=== PATIENT | female | born 1970 | race Caucasian/White ===

== ENCOUNTER → 2017-11-21 | Day surgery (SDC) | payer MEDICARE, MEDICAID, SELFPAY | END | disposition home or self-care (01) | PROVIDERS: Family Provider Physician Assistant Medical; PCP Physician Assistant Medical; Visit Provider Orthopaedic Surgery | DX: S46.011A Strain of muscle(s) and tendon(s) of the rotator cuff of right shoulder, initial encounter (principal); M75.51 Bursitis of right shoulder; M75.01 Adhesive capsulitis of right shoulder; M19.011 Primary osteoarthritis, right shoulder; J45.909 Unspecified asthma, uncomplicated; M79.7 Fibromyalgia; W06.XXXA Fall from bed, initial encounter | CPT/HCPCS: 29827; 29826; 29824; 76942; J0171; J0690; J1100; J2250; J2405; J2704; J3010 ==

== ENCOUNTER 2018-03-27 08:40 | Day surgery (SDC) | payer MEDICARE, MEDICAID, SELFPAY ==
[2018-03-26 10:27] VITALS: BMI 30.2
[2018-03-27] VITALS (7 sets, daily range): BP systolic 95–132; BP diastolic 55–70; PULSE 70–97; RESP 10–19; TEMP 36.7–37.1; O2SAT 92–95; BMI 31.1
[2018-03-27 09:54] LABS: Add Manual Diff / Slide Review NO; Basophils Percent Auto 0.3 % (0-2); Hematocrit 37.4 % (36-46); Hemoglobin 12.6 g/dL (12.0-16.0); Lymphocytes Percent Auto 35.7 % (25-40); Mean Corpuscular HGB Conc 33.7 % (30-36); Mean Corpuscular Hemoglobin 28.4 PG (26-34); Mean Corpuscular Volume 84.5 fL (80-100); Monocytes Percent Auto 6.3 % (3-14); Neutrophils Absolute Auto 4200 /uL (3000-5900); Neutrophils Percent Auto 54.7 % (50-75); Platelet Count 277 X10^3/uL (150-400); Red Blood Cell Count 4.43 X10^6/uL (4.0-5.2); Red Cell Distribution Width 15.7 % (11.6-14.8); White Blood Cell Count 7.7 X10^3/uL (4.5-11.0)
[2018-03-27] MEDS: LACTATED RINGERS 1,000 ML 42 ML IV ×2 (09:57→13:30)
[2018-03-27 10:06] LABS: BUN Creatinine Ratio 17.1 (6-22); Blood Urea Nitrogen 12 mg/dL (7-17); Calcium 9.6 mg/dL (8.4-10.2); Carbon Dioxide 29 mmol/L (22-32); Chloride 104 mmol/L (98-107); Estimated Glomerular Filt Rate > 60.0 mL/min (>60); Glucose 98 mg/dL (70-100); HEMOLYSIS 16 (0-50); Potassium 3.8 mmol/L (3.4-5.1); Sodium 141 mmol/L (137-145)
--- NOTE | 2018-03-27 10:55 | SUR.PREOP ---
Dr. Corona speaking with patient, consent obtained for block/anesthesia. O2 put on at 2LNP, continuous VS and media monitor. 1058 Site prep done by after medication administration. 1104 Local to site in prep for block 1118 Block completed. Patient drowsy (was up all night) but easily arousable. Spouse at bedside throughout procedure. Patient tolerated procedure well, speaking w/anesthesia.Continues to be monitored
--- NOTE | 2018-03-27 11:06 | PM.PREOP ---
Pre-operative Note Interval Note Pre-op Check: Yes History & Physical Reviewed by Physician and Yes Exam Performed Changes: No
--- NOTE | 2018-03-27 11:06 | PM.OP.1 ---
Operative Date/Time/Diagnoses Date of procedure: 03/27/18 Time of procedure: 11:41 Pre-op diagnosis: right shoulder rotator cuff tear, ac arthritis Post-op diagnosis: same Procedure & Clinicians Procedure: right shoulder open rotator cuff repair, right shoulder AC resection Same procedure as scheduled: Yes Indications: patient has a history of a right rotator cuff tear. She is extremely noncompliant and developed a recurrent tear. She is brought the operating room for repair is indicated. She was having significant pain still over AC joint and the plan was also to resect additional clavicle as needed. Surgeon: Oxana Abdi Pantograph Machine Set Up Operator: Ivan Caldwell Click Yes if Unassisted: Yes Anesthesia Type: General and Peripheral nerve block Operative Notes Findings: recurrent tear of the rotator cuff, ac osteoarthritis Closure Type: primary Specimen(s): none sent Implants & Drains: Arthrex suture anchor Estimated Blood Loss (mL): 200 Blood products transfused: none Procedure in detail: patient was brought to the operating room. She underwent the induction of a general anesthesia. A peripheral nerve block had been placed in the preoperative area for postoperative pain management. Patient was carefully positioned with a shoulder table and placed in a beach chair position. Her right upper extremity was prepped and draped in a standard sterile fashion. A time-out was performed and antibiotics were given. A skin incision was made over the anterior aspect of the shoulder just medial to the edge of the acromion. Dissection was carried out through skin and subcutaneous tissues. Marcaine with epinephrine was injected. an incision was made over the AC joint capsule. A portion of the clavicle appeared to be appropriately decompressed but in the most posterior aspect of it as well as along the superior aspect of the as clavicle there was a small bony spur. A saw was used to resect a small portion of the clavicle. The edge was meticulously smoothed with a rongeur. The capsule was repaired with interrupted stitches. Next attention was directed at the rotator cuff. The junction of the middle and anterior 3rd of the deltoid was identified and a small amount of deltoid was stripped from the anterior acromium. The deltoid was tagged and gently retracted. The previously placed suture and suture anchor were identified and removed. The suture was noted to be failed in the tissue. The suture was relatively free in the subdeltoid bursa. Inflamed bursal tissue was carefully removed. Patient's shoulder was placed through her range of motion. There was a full-thickness tear in her rotator cuff which was approximately 1 cm. It had clearly extended some in comparison to the previous repair. Bone at the edge of the articular cartilage and greater tuberosity was carefully freshen. Suture anchor was then placed and meticulously checked to ensure stability. A total of 3 stitches were then used to repair the rotator cuff. Good quality repair was achieved. Patient was place her range of motion the repair was noted to be stable throughout range of motion. There was no significant adhesions noted on placing the patient through the range of motion. The deltoid was repaired directly back to the anterior chromium and the junction between the middle 3rd and anterior 3rd was carefully repaired. Additional Marcaine was injected. Skin was closed with interrupted stitches and Monocryl. The wound was dressed sterilely. Patient was placed in a sling. She tolerated the procedure well and was transferred to recovery room in satisfactory condition. Complications: none Condition: stable Disposition: same day surgery Plan for aftercare: okay to do range of motion for the wrist and elbow. Use sling but pushed to full Passive range of motion of the right shoulder.
[2018-03-27] MEDS: CEFAZOLIN 2 GM/100 ML FROZ.PIGGY IV (11:25)
--- NOTE | 2018-03-27 12:09 | SUR.OPER ---
Beach chair with Vita/Kassi shoulder positioner. Lower body on padded OR bed. Head in foam padded head cradle, secured with straps. Non-operative arm secured <90 degrees abduction. Pillow under knees. Safety belt at thigh. Cloth tape over blanket over lower legs.
--- NOTE | 2018-03-27 12:15 | PM.PROC.1 ---
Procedures Date/Time Date of procedure: 03/27/18 Time of procedure: 11:00 General Procedure description: Ultrasound guided interscalene brachial plexus nerve block for post op pain control after right shoulder rotator cuff repair by Dr. Abdi. Risk and benefits of procedure discussed with patient. ASA monitoring applied to patient. O2 given via nasal cannula. 2 mg Versed and 50 mcg fentanyl given for procedural sedation. Skin site was prepped with chlorhexidine and allowed to fully dry. Sterile gloves, mask, hat and probe cover were used to maintain sterility. 2% lidocaine and 30ga needle was used to make a small skin wheal at needle insertion site. Under ultrasound guidance, a 21ga 50mm Pajunk needle was directed into the interscalene groove (middle/anterior scalenes) near the brachial plexus. Patient reported no parasthesias. After negative aspiration, 20 mL 0.5% ropivicaine and 10mg dexamethasone were injected around brachial plexus. Patient tolerated procedure well.
[2018-03-27] MEDS: BUPIVACAINE 0.5% W/ EPI (PF) VIAL 30 ML INJ (12:23)
--- NOTE | 2018-03-27 13:32 | SUR.PHASEI ---
patient with decreased breath sounds in lower left lobe of lungs, patient continues to require 3lpm via NC to maintain sats of 94. 90% on room air. Alert and oriented and in no distress at this time, all other vital signs remain normal. will remain in OPD on o2 and o2 sat monitor for titration off o2.
--- NOTE | 2018-03-27 13:46 | SUR.PHASEII ---
Spoke to Dr. Corona regarding patients continued needs for 02. Per Dr. Corona patient ok to discharge as long as alert, oriented, and with room air oxygen saturations greater than 88% on room air.
--- NOTE | 2018-03-27 13:59 | SUR.PHASEII ---
02 d/c'ed rest of vs stable sats 90-92% on room air. pt wants to go. assissted to dress. pt left when ready.
== END 2018-03-27 14:40 | disposition home or self-care (01) ==
PROVIDERS: PCP Family Medicine; Visit Provider Orthopaedic Surgery
PROC: (CPT 23410; principal; 2018-03-27 10:45)
DX: M75.121 Complete rotator cuff tear or rupture of right shoulder, not specified as traumatic (principal); M19.011 Primary osteoarthritis, right shoulder; G89.18 Other acute postprocedural pain; F41.9 Anxiety disorder, unspecified; M79.7 Fibromyalgia
CPT/HCPCS: 23410; 23120; 64415; 64450; 80048; 85025; J0690; J1100; J2250; J2405; J2704; J2795; J3010

== ENCOUNTER 2018-04-11 19:59 | Emergency (ER) | payer MEDICARE, MEDICAID, SELFPAY ==
[2018-04-11 21:01] VITALS: BP 137/89; PULSE 90; RESP 18; TEMP 36.4; O2SAT 99; BMI 32.1
--- NOTE | 2018-04-11 22:57 | DI.RAD.S_ITS ---
PROCEDURE: XR SHOULDER RT MIN 2V INDICATIONS: Right shoulder pain. TECHNIQUE: 3 views of the shoulder were acquired. COMPARISON: [facility] [place], CR, XR SHOULDER 2+ VIEWS RIGHT, 09/11/2017, 10:26. [facility] [place], CR, XR SHOULDER 2+ VIEWS RIGHT, 11/29/2017, 10:43. [facility] [place], CR, XR SHOULDER 2+ VIEWS RIGHT, 12/29/2017, 15:07. [facility] [place], MR, MR SHOULDER RIGHT WITHOUT CONTRAST, 03/10/2018, 14:20. FINDINGS: Bones: No fractures or dislocations. There is mild anterior inferior subluxation of humeral head. Widening of the acromial clavicular joint and superior subluxation of distal clavicle. No suspicious bony lesions. Visualized ribs appear intact. Soft tissues: No suspicious soft tissue calcifications. IMPRESSION: 1. There is mild anterior inferior subluxation of humeral head at the glenohumeral joint. 2. Widening of the right a.c. joint with superior subluxation of distal clavicle consistent with a.c. separation. Dictated by: Vishal Nagy M.D. on 04/12/2018 at 10:04 Approved by: Vishal Nagy M.D. on 04/12/2018 at 10:08
[2018-04-11 23:06] VITALS: BP 125/82; PULSE 76; RESP 16; TEMP 36.8; O2SAT 97
[2018-04-11] MEDS: KETOROLAC 60 MG/2 ML VIAL IM (23:50)
[2018-04-11] MEDS: OXYCODONE/ACETAMINOPHEN 5/325 TABLET 1 TAB PO (23:55)
--- NOTE | 2018-04-12 00:01 | ED_ITS ---
HPI - Extremity Injury (Upper) General Chief Complaint: Extremity Injury, Upper Stated Complaint: RT SHOULDER PAIN S/P SURGERY Time Seen by Provider: 04/11/18 20:30 Source: patient Mode of arrival: ambulatory Limitations: no limitations History of Present Illness HPI narrative: 47-year-old female with history asthma and longstanding right shoulder trouble presents with a history of right shoulder pain for the past few days. She has had multiple recent surgeries to repair rotator cuff injuries and with a simple nontraumatic motion felt a pop in her shoulder and developed bruising. She denies any weakness, numbness or tingling. complaint: injury to: right Onset (ago): hour(s) Other injuries: none Handedness: right Place: home Severity: moderate Relieving factors: none Exacerbating factors: movement of extremity Associated symptoms: denies other symptoms Related Data Home Medications Medication Instructions Recorded Confirmed ALBUTEROL SULFATE (Ventolin / 0 INH PRN PRN #0 09/13/06 Proventil) ondansetron [Zofran ODT] 8 mg PO PRN #0 11/03/12 03/27/18 topiramate [Topamax] 400 mg PO HS #0 11/03/12 03/27/18 bupropion HCl [Wellbutrin SR] 200 mg PO BID #0 07/29/16 03/27/18 dextroamphetamine-amphetamine 20 mg PO TID #0 02/09/17 03/27/18 [Adderall] pseudoephedrine HCl 60 mg PO Q6HP PRN #0 02/09/17 acetaminophen 1,000 mg PO Q4HP PRN #0 11/15/17 03/27/18 albuterol sulfate [Proventil HFA] 2 puff INH Q4HP PRN #0 11/15/17 03/27/18 ascorbic acid (vitamin C) 1,000 mg PO #0 11/15/17 aspirin 81 mg PO QDAY #0 11/15/17 calcium citrate-vitamin D3 1 tab PO #0 11/15/17 cholecalciferol (vitamin D3) #0 11/15/17 dextroamphetamine-amphetamine #0 11/15/17 [Adderall] diphenhydramine HCl [Diphedryl] 50 mg PO Q4HP #0 11/15/17 03/27/18 magnesium amino acid chelate mg PO #0 11/15/17 multivitamin [Multiple Vitamins] 1 tab PO QDAY #0 11/15/17 omega 7-ath-zyy-fish oil [Fish Oil] mg PO #0 11/15/17 pramipexole [Mirapex] 1 mg PO TID #0 11/15/17 03/27/18 pseudoephedrine HCl 60 mg PO Q6H PRN #0 11/15/17 vitamin B complex [B #0 11/15/17 Complex-Vitamin B12] varenicline [Chantix] 1 mg PO BID 03/27/18 03/27/18 Previous Rx's Medication Instructions Recorded cyclobenzaprine 10 mg PO TIDP PRN #14 tab 10/31/16 methylprednisolone [Medrol] 32 mg PO QDAY #5 tab 02/09/17 oxycodone 10 mg PO Q3H PRN #10 tab 03/27/18 Allergies Allergy/AdvReac Type Severity Reaction Status Date / Time codeine [CODEINE] Allergy Intermediate Itch, Verified 03/27/18 09:36 mental - didn't know what I was doing? tramadol [From ULTRAM] AdvReac Severe SWELLING Verified 03/27/18 15:44 Review of Systems Review of Systems All systems reviewed & are unremarkable except as noted in HPI and below Constitutional Denies chills, Denies fever(s), Denies lethargy and Denies weakness Eyes Denies change in vision, Denies eye discharge, Denies irritation and Denies loss of vision ENT Ears, Nose, Mouth, and Throat: Denies change in voice, Denies neck pain and Denies sore throat Cardiovascular Denies chest pain, Denies irregular heart rhythm, Denies lightheadedness, Denies palpitations, Denies dyspnea, Denies dyspnea on exertion and Denies orthopnea Respiratory Denies cough, Denies dyspnea, Denies dyspnea on exertion and Denies wheezing Gastrointestinal Gastrointestinal: Denies abdominal pain, Denies change in bowel habits, Denies diarrhea, Denies nausea and Denies vomiting Genitourinary Denies hematuria, Denies flank pain, Denies urinary incontinence and Denies urinary urgency Musculoskeletal Reports limited range of motion and Denies neck pain Integumentary/Breasts Denies pruritus, Denies erythema, Denies rash and Denies wounds Neurologic Denies confusion, Denies loss of vision and Denies weakness Psychiatric Denies anxiety, Denies confusion, Denies depression, Denies homicidal ideation and Denies suicidal ideation Endocrine Denies palpitations Hematologic/Lymphatic Denies easy bruising Allergic/Immunologic Denies wheezing [facility] Medical History ADHD (Acute) Asthma (Acute) Cubital tunnel syndrome (Acute) Depression (Acute) Disturbance of skin sensation (Acute) Edema (Acute) Enthesopathy (Acute) Exposure to hepatitis C (Acute) Fibromyalgia (Acute) Hepatitis A (Acute) History of hysterectomy (Acute) Migraine headache (Acute) Osteoarthritis (Acute) PTSD (post-traumatic stress disorder) (Acute) RLS (restless legs syndrome) (Acute) Surgical History History of ankle surgery (Acute) History of arthroscopy of right shoulder (Acute) History of bladder surgery (Acute) History of carpal tunnel release of both wrists (Acute) History of section (Acute) History of facial surgery (Acute) History of stress incontinence procedure using tension free vaginal tape (Acute) Hx of cholecystectomy (Acute) Social History household members: spouse Smoking Status: Current every day smoker alcohol intake: current Exam Narrative Exam Narrative: GEN: AOx3 and in mild distress EYES: Pupils are equal, round, and reactive to light and accommodation. Extraoccular muscles are intact bilaterally. There is no subconjunctival hemorrhage or exudate. CHEST: Lungs are clear to auscultation bilaterally and free of wheezes, rales, or rhonchi. Heart rate is regular rhythm, there are no murmurs, clicks, rubs, or gallops. There is no chest wall tenderness. ABD: Abdomen is soft and nontender. There is no guarding or rebound. Bowel sounds are normal in all 4 quadrants. There is no mass or organomegaly. EXT: Decreased range of motion secondary to pain of right shoulder. Incision appears clean, dry and intact. There is yellowish purple bruising chest distal to the incision site but no warmth, induration or fluctuance. Cap refills less than 2 sec, sensation intact SKIN: Warm, pink, and dry. No erythema or rash Initial Vital Signs Initial Vital Signs: Vital Signs Temperature 97.6 F 04/11/18 21:01 Pulse Rate 90 04/11/18 21:01 Respiratory Rate 18 04/11/18 21:01 Blood Pressure 137/89 04/11/18 21:01 Pulse Oximetry 99 04/11/18 21:01 Course Orders Ordered: ED Orders 04/11/18 22:57 XR shoulder RT min 2V Stat Discontinued Medications Ketorolac Tromethamine (Toradol) 60 mg IM NOW ONE Stop: 04/11/18 23:38 Last Admin: 04/11/18 23:50 Dose: 60 mg Oxycodone/Acetaminophen (Percocet 5/325) 1 tab PO NOW ONE Stop: 04/11/18 23:38 Last Admin: 04/11/18 23:55 Dose: 1 tab Vital Signs - 8 hr 04/11/18 23:06 Temperature 98.3 F Pulse Rate 76 Respiratory Rate 16 Blood Pressure [Left Arm] 125/82 Pulse Oximetry 97 MDM - Extremity Injury (Upper) Medical Records Attestation: I reviewed the patient's medical records. Lab Data Attestation: I reviewed the patient's lab results. Imaging Data Shoulder Xray: Attestation: I personally reviewed and interpreted this imaging study as follows: Radiologist's impression: No obvious bony abnormality Discharge Plan Departure Patient Disposition: Home Clinical Impression: Acute shoulder pain Discharge Date/Time: 04/12/18 00:12 Interventions: ED Discharge Assessment Last Done: 04/12/18 00:11 Instructions: DI for Shoulder Pain Activity Restrictions/Additional Instructions: *You have been diagnosed with [ acute on chronic right shoulder pain ] *What to do: *Take medications as directed *Follow up with your orthopedist as previously directed. Please call the office in the morning to let them know you were in the emergency department *Return to ER if you should have any new, worsening or concerning symptoms Prescriptions: No Action ALBUTEROL SULFATE (Ventolin / Proventil) aerosol INH PRN PRN (Reason: Acne) Qty: 0 RF: 0 ondansetron [Zofran ODT] 8 MG tablet,disintegrating 8 mg PO PRN Qty: 0 RF: 0 topiramate [Topamax] 200 MG tablet 400 mg PO HS Qty: 0 RF: 0 bupropion HCl [Wellbutrin SR] 200 MG tablet extended release 12 hr 200 mg PO BID Qty: 0 RF: 0 cyclobenzaprine 10 MG tablet 10 mg PO TIDP PRNQty: 14 RF: 0 pseudoephedrine HCl 30 MG tablet 60 mg PO Q6HP PRN (Reason: Allergies) Qty: 0 RF: 0 dextroamphetamine-amphetamine [Adderall] 20 MG tablet 20 mg PO TID Qty: 0 RF: 0 methylprednisolone [Medrol] 32 MG tablet 32 mg PO QDAY Qty: 5 RF: 0 multivitamin [Multiple Vitamins] 1 EACH tablet 1 tab PO QDAY Qty: 0 RF: 0 vitamin B complex [B Complex-Vitamin B12] 1 EACH tablet Qty: 0 RF: 0 calcium citrate-vitamin D3 315 MG/200 IU tablet 1 tab PO Qty: 0 RF: 0 magnesium amino acid chelate 100 MG tablet PO Qty: 0 RF: 0 pramipexole [Mirapex] 1 MG tablet 1 mg PO TID Qty: 0 RF: 0 acetaminophen 500 MG tablet 1,000 mg PO Q4HP PRN (Reason: Pain) Qty: 0 RF: 0 omega 4-bxw-jjm-fish oil [Fish Oil] 1,000 MG capsule PO Qty: 0 RF: 0 aspirin 81 MG tablet,delayed release (DR/EC) 81 mg PO QDAY Qty: 0 RF: 0 diphenhydramine HCl [Diphedryl] 25 MG tablet 50 mg PO Q4HP Qty: 0 RF: 0 albuterol sulfate [Proventil HFA] 90 MCG/PUFF HFA aerosol inhaler 2 puff INH Q4HP PRN (Reason: Asthma) Qty: 0 RF: 0 dextroamphetamine-amphetamine [Adderall] 12.5 MG tablet Qty: 0 RF: 0 ascorbic acid (vitamin C) 500 MG tablet 1,000 mg PO Qty: 0 RF: 0 pseudoephedrine HCl 30 MG tablet 60 mg PO Q6H PRN (Reason: Allergies) Qty: 0 RF: 0 cholecalciferol (vitamin D3) 50,000 UNIT capsule Qty: 0 RF: 0 varenicline [Chantix] 0.5 mg Tablet 1 mg PO BID RF: 0 oxycodone 10 mg tablet 10 mg PO Q3H PRN (Reason: pain) Qty: 10 RF: 0 Referrals: Elia Carlson DO [Primary Care Provider] - Oxana Abdi MD [Physician] -
== END 2018-04-12 00:12 | disposition home or self-care (01) ==
PROVIDERS: Emergency Provider Emergency Medicine; Family Provider Family Medicine; PCP Family Medicine; Referring Provider Orthopaedic Surgery
DX: M25.511 Pain in right shoulder (principal)
CPT/HCPCS: 73030; 96372; 99282; 99283; J1885

== ENCOUNTER 2022-08-26 06:24 | Emergency (ER) | payer MEDICARE, MEDICAID, SELFPAY ==
--- NOTE | 2022-08-26 06:36 | DI.RAD.S_ITS ---
PROCEDURE: XR CHEST 1V INDICATIONS: SOB TECHNIQUE: One view of the chest was acquired. COMPARISON: [facility], , CHEST 1 VIEW, 10/31/2016, 4:16. FINDINGS: Surgical changes and devices: None. Lungs and pleura: Lungs are clear. Chronic interstitial prominence. No pleural effusions or pneumothorax. Mediastinum: Mediastinal contours appear normal. Mild cardiomegaly. Bones and chest wall: No suspicious bony lesions. Overlying soft tissues appear unremarkable. IMPRESSION: Mild cardiomegaly. Chronic interstitial prominence. Dictated by: Wang Baker M.D. on 08/26/2022 at 8:14 Approved by: Wang Baker M.D. on 08/26/2022 at 8:16
[2022-08-26 06:47] VITALS: BP 149/69; PULSE 83; RESP 22; O2SAT 96; BMI 46.9
[2022-08-26 06:59] LABS: Add Manual Diff / Slide Review NO; Basophils Absolute Auto 100 /uL (0-100); Basophils Percent Auto 1.1 % (0-2); Eosinophils Absolute Auto 100 /uL (0-450); Eosinophils Percent Auto 1.7 % (2-4); Hematocrit 38.9 % (36-46); Hemoglobin 13.2 g/dL (12.0-16.0); Lymphocytes Absolute Auto 2400 /uL (1100-4500); Lymphocytes Percent Auto 31.6 % (25-40); Mean Corpuscular HGB Conc 33.9 % (30-36); Mean Corpuscular Hemoglobin 28.7 PG (26-34); Mean Corpuscular Volume 84.7 fL (80-100); Monocytes Absolute Auto 600 /uL (0-900); Neutrophils Absolute Auto 4300 /uL (1500-7000); Neutrophils Percent Auto 57.6 % (50-75); Platelet Count 275 X10^3/uL (150-400); Red Blood Cell Count 4.59 X10^6/uL (4.0-5.2); Red Cell Distribution Width 14.7 % (11.6-14.8); White Blood Cell Count 7.5 X10^3/uL (4.5-11.0)
[2022-08-26 07:02] LABS: Creatine Kinase 91 U/L (30-135); Lipase 85 U/L (23-300)
[2022-08-26 07:04] LABS: Alanine Aminotransferase 38 IU/L (<35); Albumin 4.5 g/dL (3.5-5.0); Albumin Globulin Ratio 1.3 (1.0-2.8); Alkaline Phosphatase 87 U/L (38-126); Aspartate Aminotransferase 34 IU/L (14-36); BUN Creatinine Ratio 23.2 (6-22); Bilirubin Total 0.4 mg/dL (0.2-1.3); Blood Urea Nitrogen 19 mg/dL (7-17); Calcium 9.7 mg/dL (8.4-10.2); Carbon Dioxide 19 mmol/L (22-32); Chloride 108 mmol/L (98-107); Estimated Glomerular Filt Rate > 60 mL/min (>60); Globulin 3.6 g/dL (1.7-4.1); Glucose 122 mg/dL (70-100); HEMOLYSIS < 15 (0-50); Potassium 3.6 mmol/L (3.4-5.1); Sodium 141 mmol/L (137-145); Total Protein 8.1 g/dL (6.3-8.2)
[2022-08-26 07:15] LABS: NT-proBNP (BNP-Adult 18+) 145 pg/mL (<125); Troponin I 0.013 ng/mL (0.01-0.034)
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
[2022-08-26 07:53] LABS: Influenza A - CEPHEID Flu A NEGATIVE (NEGATIVE); Influenza B - CEPHEID Flu B NEGATIVE (NEGATIVE); Respiratory Syncytial Virus Negative (Negative)
[2022-08-26 07:55] LABS: COVID-19 CEPHEID 4-PLEX PCR Negative (Negative)
--- NOTE | 2022-08-26 08:03 | DI.CT.S_ITS ---
PROCEDURE: CT ANGIO CHEST PE PROTOCOL INDICATIONS: sob, progressive over time, hx of ? traumatic dissection TECHNIQUE: After the administration of intravenous contrast, 2 mm thick sections acquired from the pulmonary apices to the posterior costophrenic angles. 3-dimensional maximum intensity projection (MIP) coronal and sagittal reformats were then acquired through the thorax. For radiation dose reduction, the following was used: automated exposure control, adjustment of mA and/or kV according to patient size. COMPARISON: None. FINDINGS: Image quality: Excellent. Pulmonary arteries: Pulmonary arteries are normal in size, and demonstrate no intraluminal filling defects to suggest central pulmonary embolism. Lungs and pleura: Mild atelectasis is present at the lingular base. Lungs are otherwise clear. No pleural effusions or pneumothorax. Central and peripheral airways are patent. Mediastinum: Heart size is normal, without pericardial effusion. No mediastinal or hilar adenopathy. Thoracic aorta is normal in caliber and enhancement. Esophagus is normal in caliber, without hiatal hernia. Bones and chest wall: No suspicious bony lesions. Ribs and thoracic spine appear intact throughout. Thyroid gland is unremarkable. No axillary or supraclavicular adenopathy. Abdomen: Visualized upper abdominal solid organs appear normal in the early arterial phase of enhancement. IMPRESSION: 1. No acute pulmonary embolus. 2. No acute pulmonary findings. Dictated by: Sandra Hastings M.D. on 08/26/2022 at 8:44 Approved by: Sandra Hastings M.D. on 08/26/2022 at 8:48
[2022-08-26] MEDS: OXYCODONE/ACETAMINOPHEN 5/325 TABLET 2 TAB PO (08:53)
[2022-08-26 10:13] LABS: Troponin I < 0.012 ng/mL (0.01-0.034)
--- NOTE | 2022-08-26 11:17 | PC.NURSE ---
assessment done by provider. Vital signs monitor during patient stay. WNL. deleted prior to transfer from monitor
[2022-08-26 11:18] VITALS: BP 100/63; PULSE 69; RESP 16; O2SAT 96
== END 2022-08-26 11:21 | disposition home or self-care (01) ==
PROVIDERS: Emergency Medicine; Emergency Provider Emergency Medicine; Family Provider Family Medicine; PCP Family Medicine
DX: R06.00 Dyspnea, unspecified (principal); R07.9 Chest pain, unspecified; R79.89 Other specified abnormal findings of blood chemistry; Z20.822 Contact with and (suspected) exposure to COVID-19
CPT/HCPCS: 0241U; 71045; 71275; 80053; 82550; 83690; 83735; 83880; 84484; 85025; 93005; 99283; 99284